=== PATIENT | female | born 1985 | race Caucasian/White ===

== ENCOUNTER 2020-04-21 05:22 | Inpatient (IN) ==
[2020-04-21] MEDS ORDERED: Famotidine 20 MG/2 ML VIAL IVP PRN (05:58)
[2020-04-21] MEDS ORDERED: Metoclopramide 10 MG/2 ML VIAL IVP PRN ×2 (05:58→12:48)
[2020-04-21] MEDS ORDERED: Ondansetron 4 MG/2 ML VIAL IVP PRN ×2 (05:58→12:48)
[2020-04-21] MEDS ORDERED: Naloxone 0.4 MG/ML INJ IVP PRN ×2 (05:58→12:48)
[2020-04-21] MEDS ORDERED: ceFAZolin 3,000 MG in Water for inj. (sterile) 30 ML IVP ONE (05:59)
[2020-04-21] MEDS ORDERED: Ringers Solution, Lactated 1,000 ML IVC SCH ×2 (06:00→12:48)
[2020-04-21 06:25] LABS: Basophils % 0.3 %; Eosinophils % 0.2 %; Hematocrit 33.9 % (35.3-44.9); Hemoglobin 10.5 g/dL (11.5-15.4); Lymphocytes # 1.9 K/mcL (0.6-4.6); Lymphocytes % 21.5 %; Mean Corpuscular Hemoglobin 26.2 pg (28.0-33.3); Mean Corpuscular Volume 84.5 fL (83.0-100.0); Mean Platelet Volume 11.4 fL (9.4-12.4); Monocytes # 0.7 K/mcL (0.0-1.3); Monocytes % 8.3 %; Neutrophils # 5.8 K/mcL (1.6-8.9); Platelet Count 258 K/mcL (140-400); Red Blood Count 4.01 M/mcL (3.82-4.97); Red Cell Distribution Width 17.5 % (11.5-14.5); Segmented Neutrophils % 67.7 %; White Blood Count 8.6 K/mcL (4.3-11.1)
[2020-04-21 08:23] LABS: Amphetamine Screen,Urine Negative ng/mL (Cutoff=1000); Barbiturate Screen,Urine Negative ng/mL (Cutoff=200); Benzodiazepines Screen,Urine Negative ng/mL (Cutoff=200); Cannabinoid Screen,Urine Negative ng/mL (Cutoff = 50); Cocaine Screen,Urine Negative ng/mL (Cutoff= 300); Opiate Screen,Urine Negative ng/mL (Cutoff=300); Phencyclidine Screen,Urine Negative ng/mL (Cutoff=25)
[2020-04-21] MEDS ORDERED: *HR* OxyCODONE Immed Rel 5 MG TABLET PO PRN (08:59)
[2020-04-21] MEDS ORDERED: *HR* Promethazine 25 MG/ML VIAL IVP PRN (08:59)
[2020-04-21] MEDS ORDERED: Simethicone 80 MG TAB.CHEW PO PRN (12:48)
[2020-04-21] MEDS ORDERED: Sennosides 8.6 MG TABLET PO PRN (12:48)
[2020-04-21] MEDS ORDERED: Rho Immune Globulin 1,500 UNIT SYRINGE IM ONE (12:48)
[2020-04-21] MEDS: Oxytocin 20 units/ LR 1000 mL 20 UNIT/1,000 ML BAG IVC SCH (19:28)
[2020-04-21] MEDS: Ibuprofen 600 MG TABLET PO PRN (20:17)
[2020-04-22] MEDS: Ibuprofen 600 MG TABLET PO PRN ×3 (03:13→17:12)
[2020-04-22] MEDS: Oxytocin 20 units/ LR 1000 mL 20 UNIT/1,000 ML BAG IVC SCH ×2 (03:14→09:51)
[2020-04-22 04:55] LABS: Basophils % 0.2 %; Eosinophils % 0.3 %; Hematocrit 25.4 % (35.3-44.9); Immature Granulocytes % 0.7 % (0-4); Lymphocytes # 1.5 K/mcL (0.6-4.6); Lymphocytes % 14.3 %; Mean Corpuscular HGB Conc 30.7 g/dL (31.6-35.5); Mean Corpuscular Hemoglobin 26.4 pg (28.0-33.3); Mean Corpuscular Volume 85.8 fL (83.0-100.0); Mean Platelet Volume 11.4 fL (9.4-12.4); Monocytes # 0.7 K/mcL (0.0-1.3); Monocytes % 6.7 %; Neutrophils # 7.9 K/mcL (1.6-8.9); Platelet Count 204 K/mcL (140-400); Red Blood Count 2.96 M/mcL (3.82-4.97); Red Cell Distribution Width 17.6 % (11.5-14.5); Segmented Neutrophils % 77.8 %; White Blood Count 10.2 K/mcL (4.3-11.1)
[2020-04-22 05:01] LABS: Hemoglobin 7.8 g/dL (11.5-15.4)
[2020-04-22] MEDS: Prenatal Vit/FA 1 EACH TABLET PO SCH (08:35)
[2020-04-22] MEDS: *HR* OxyCODONE/APAP 5/325 TABLET PO PRN (15:02)
[2020-04-23] MEDS: Ibuprofen 600 MG TABLET PO PRN ×2 (02:42→12:05)
[2020-04-23] MEDS: *HR* OxyCODONE/APAP 5/325 TABLET PO PRN ×2 (02:42→08:53)
[2020-04-23 06:57] LABS: Basophils % 0.3 %; Eosinophils % 0.4 %; Hematocrit 25.1 % (35.3-44.9); Hemoglobin 7.7 g/dL (11.5-15.4); Immature Granulocytes % 1.7 % (0-4); Lymphocytes % 19.4 %; Mean Corpuscular HGB Conc 30.7 g/dL (31.6-35.5); Mean Corpuscular Hemoglobin 26.6 pg (28.0-33.3); Mean Corpuscular Volume 86.6 fL (83.0-100.0); Mean Platelet Volume 10.9 fL (9.4-12.4); Monocytes # 0.6 K/mcL (0.0-1.3); Monocytes % 5.7 %; Neutrophils # 7.6 K/mcL (1.6-8.9); Platelet Count 240 K/mcL (140-400); Red Cell Distribution Width 18.1 % (11.5-14.5); Segmented Neutrophils % 72.5 %; White Blood Count 10.4 K/mcL (4.3-11.1)
[2020-04-23 07:40] VITALS: BP 105/69
[2020-04-23] MEDS: Prenatal Vit/FA 1 EACH TABLET PO SCH (08:53)
== END 2020-04-23 13:15 | disposition home or self-care (01) | DRG 806 ==
LOC: 1NENULAB 05:22 → 1NENUOBS 12:22
PROVIDERS: ADMIT Obstetrics & Gynecology; ATTEND Obstetrics & Gynecology